=== PATIENT | male | born 1975 | race Caucasian/White ===

== ENCOUNTER 2018-01-04 22:30 | Emergency (ER) | payer BC ==
--- NOTE | 2018-01-05 01:28 | ER Document Report ---
HPI - HPI Patient complains to provider of: rash Pain Level: 1 Notes: Pt. is a 42 year old male presenting with a rash to the left shoulder. He stated he did not see any insect bite him, although was outside working in the yard and states it is possible something may have bitten him. States also it may be possible to have come in contact with poison mel or poison oak. Stated the lesion itches. Pt. denies fever, CP, SOB, or URI symptoms. - CONSTITUTIONAL Constitutional: DENIES: Fever Past Medical History - General Information source: Patient - Social History Smoking Status: Never Smoker Chew tobacco use (# tins/day): No Frequency of alcohol use: None Drug Abuse: None Lives with: Family Family History: Reviewed & Not Pertinent Patient has suicidal ideation: No Patient has homicidal ideation: No Renal/ Medical History: Denies: Hx Peritoneal Dialysis Vertical Provider Document - CONSTITUTIONAL Notes: GENERAL: Alert, interacts well. No acute distress. HEAD: Normocephalic, atraumatic. EYES: Pupils equal, round, and reactive to light. Extraocular movements intact. ENT: Oral mucosa moist, tongue midline. NECK: Full range of motion. Supple. Trachea midline. LUNGS: Clear to auscultation bilaterally, no wheezes, rales, or rhonchi. No respiratory distress. HEART: Regular rate and rhythm. No murmur ABDOMEN: Soft, non-tender. Non-distended. Bowel sounds present in all 4 quadrants. EXTREMITIES: Moves all 4 extremities spontaneously. No edema, normal radial and dorsalis pedis pulses bilaterally. No cyanosis. BACK: no cervical, thoracic, lumbar midline tenderness. No saddle anesthesia, normal distal neurovascular exam. NEUROLOGICAL: Alert and oriented x3. Normal speech. . PSYCH: Normal affect, normal mood. SKIN: Warm, dry, vesicular lesions noted 8cm x 5cm with erythema base - INFECTION CONTROL TRAVEL OUTSIDE OF THE [place] IN LAST 30 DAYS: No Course - Re-evaluation Re-evalutation: No area of fluctuance or induration noted. Consistent erythema with small vesicles noted consistent with contact dermatitis. Will treat for same. Return precautions given - Vital Signs Vital signs: Temp Pulse Resp BP Pulse Ox 98.5 F 72 18 140/86 H 97 01/04/18 22:45 01/04/18 22:45 01/04/18 22:45 01/04/18 22:45 01/04/18 22:45 Discharge - Discharge Clinical Impression: Poison mel dermatitis Condition: Stable Disposition: HOME, SELF-CARE Instructions: Contact Dermatitis ([facility]), Corticosteroid Medication ([facility]) Prescriptions: Hydrocortisone/Oatmeal/Aloe/E [Hydrocortisone 1% Cream] 28.4 gm TP BID #1 cream.gm.
[2018-01-05 01:41] VITALS: BP 127/82
== END 2018-01-05 01:41 | disposition home or self-care (01) ==
LOC: ER 22:30
DX: L23.7 Allergic contact dermatitis due to plants, except food (principal)
CPT/HCPCS: 99281

== ENCOUNTER → 2018-11-10 | Outpatient (CLI) | payer OTHER ==
--- NOTE | 2018-11-10 16:18 | RADIOLOGY REPORT (SQ) ---
EXAM DESCRIPTION: MRI HEAD WITHOUT COMPLETED DATE/TIME: 11/10/2018 4:01 pm REASON FOR STUDY: MIGRAINE WITH AURA, INTRACTABLE, WITHOUT STATUS MIGRAINOSUS G43.119 MIGRAINE WITH AURA, INTRACTABLE, WITHOUT STATUS MIGR COMPARISON: None. TECHNIQUE: Multiplanar imaging includes non-contrasted T1, T2, FLAIR, and diffusion with ADC map seq uences. Images stored on PACS. LIMITATIONS: None. FINDINGS: ANATOMY: No anomalies. Normal vascular flow voids. Pituitary fossa normal. CSF SPACES: Normal in size and contour. No hemorrhage. CEREBRUM: Sulci and gyri normal in size and contour. Normal white matter signal on FLAIR imaging. No evidence of hemorrhage, mass, or extraaxial fluid collection. POSTERIOR FOSSA: No signal alteration. No hemorrhage. No edema, masses or mass effect. Internal ramírez tory canals, cerebello-pontine angles, mastoids normal. DIFFUSION IMAGING: Negative for acute or sub-acute infarction. ORBITS: No masses. Globes normal. PARANASAL SINUSES: No fluid levels. Mucosa normal. OTHER: No other significant finding. IMPRESSION: NORMAL MRI OF THE BRAIN WITHOUT INTRAVENOUS GADOLINIUM CONTRAST. EVIDENCE OF ACUTE STROKE: NO. TECHNICAL DOCUMENTATION: JOB ID: [id number] 2010 [employer]- All Rights Reserved Reading location - IP/workstation name: [email or web address]
== END ==
LOC: RAD 15:22
PROVIDERS: ATTEND Physician Assistant
DX: G43.119 Migraine with aura, intractable, without status migrainosus (principal)
CPT/HCPCS: 70551

== ENCOUNTER 2020-04-03 18:39 | Emergency (ER) | payer BC, OTHER ==
--- NOTE | 2020-04-03 19:35 | ER Document Report ---
ED Medical Screen (RME) - General Chief Complaint: High Blood Pressure Stated Complaint: HIGH BLOOD PRESSURE Time Seen by Provider: 04/03/20 18:54 Primary Care Provider: JODIE MADRIGAL PA [Primary Care Provider] - Follow up as needed TRAVEL OUTSIDE OF THE [place] IN LAST 30 DAYS: No - HPI Notes: 04/03/20 18:59 44-year-old male with a history of migraines presents to the emergency room with complaints of a pressure-like headache, blurred vision, chest pressure with pain radiating down his left arm and increased fatigue around 3:57 PM today. Reports blood pressures usually 120 over 80s, no history of hypertension. Patient states that he took a full aspirin of 324, no relief. Denies any shortness of breath, nausea, vomiting abdominal pain. Denies any fevers or chills. He reports that his left arm "feels sore". Denies any trauma. Denies any cardiac history. Reports that his father passed at 65 from an [place], unsure of mother. Non-smoker. I have greeted and performed a rapid initial assessment of this patient. A comprehensive ED assessment and evaluation of the patient, analysis of test results and completion of the medical decision making process will be conducted by additional ED providers. PHYSICAL EXAMINATION: GENERAL: Well-appearing, well-nourished and in no acute distress. HEAD: Atraumatic, normocephalic. EYES: Pupils equal round extraocular movements intact, conjunctiva are normal. NECK: Normal range of motion CV: s1, s2 regular LUNGS: No respiratory distress Musculoskeletal: Normal range of motion NEUROLOGICAL: Normal speech, normal gait. Reps +2 bilaterally and equally SKIN: Warm, Dry, normal turgor, no rashes or lesions noted. The patient was evaluated during a global COVID-19 pandemic and that diagnosis was suspected/considered upon their initial presentation. Their evaluation, treatment and testing was consistent with current guidelines for patients who present with complaints or symptoms and may be related to COVID-19. - Related Data Allergies/Adverse Reactions: No Known Allergies Allergy (Unverified 01/04/18 22:32) Past Medical History Renal/ Medical History: Denies: Hx Peritoneal Dialysis Physical Exam - Vital signs Vitals: Temp Pulse Resp BP Pulse Ox 97.8 F 98 16 172/52 H 100 04/03/20 18:40 04/03/20 18:40 04/03/20 18:40 04/03/20 18:40 04/03/20 18:40 Course - Vital Signs Vital signs: Temp Pulse Resp BP Pulse Ox 97.8 F 98 16 172/52 H 100 04/03/20 18:40 04/03/20 18:40 04/03/20 18:40 04/03/20 18:40 04/03/20 18:40 Doctor's Discharge - Discharge Referrals: JODIE MADRIGAL PA [Primary Care Provider] - Follow up as needed
--- NOTE | 2020-04-03 19:48 | RADIOLOGY REPORT (SQ) ---
EXAM DESCRIPTION: CHEST SINGLE VIEW IMAGES COMPLETED DATE/TIME: 04/03/2020 7:41 pm REASON FOR STUDY: chest pressure COMPARISON: None. EXAM PARAMETERS: NUMBER OF VIEWS: One view. TECHNIQUE: Single frontal radiographic view of the chest acquired. RADIATION DOSE: NA LIMITATIONS: None. FINDINGS: LUNGS AND PLEURA: No opacities, masses or pneumothorax. No pleural effusion. MEDIASTINUM AND HILAR STRUCTURES: No masses. Contour normal. HEART AND VASCULAR STRUCTURES: Heart normal in size. Normal vasculature. BONES: No acute findings. HARDWARE: None in the chest. OTHER: No other significant finding. IMPRESSION: NO ACUTE RADIOGRAPHIC FINDING IN THE CHEST. TECHNICAL DOCUMENTATION: JOB ID: [id number] 2010 [employer]- All Rights Reserved Reading location - IP/workstation name: [email or web address]
[2020-04-03 19:50] LABS: ABSOLUTE EOSINOPHILS # (AUTO) 0.2 10^3/uL (0.0-0.6); ABSOLUTE LYMPHOCYTES (AUTO) 3.1 10^3/uL (0.5-4.7); ABSOLUTE MONOCYTES (AUTO) 0.5 10^3/uL (0.1-1.4); ABSOLUTE NEUT (AUTO) 4.7 10^3/uL (1.7-8.2); BASOPHILS % (AUTO) 0.4 % (0-2); EOSINOPHILS % (AUTO) 2.8 % (0-6); HEMOGLOBIN 15.5 g/dL (13.5-17.0); LYMPHOCYTES % (AUTO) 36.2 % (13-45); MEAN CORPUSCULAR HEMOGLOBIN 29.6 pg (27.0-33.4); MEAN CORPUSCULAR HGB CONC 35.1 g/dL (32.0-36.0); MEAN CORPUSCULAR VOLUME 84 fl (80-97); MONOCYTES % (AUTO) 6.3 % (3-13); PLATELET COUNT 247 10^3/uL (150-450); RED BLOOD COUNT 5.22 10^6/uL (4.35-5.55); RED CELL DISTRIBUTION WIDTH 13.1 % (11.5-14.0); SEGMENTED NEUTROPHILS % (AUTO) 54.3 % (42-78); TOTAL CELLS COUNTED % (AUTO) 100 %; WHITE BLOOD COUNT 8.7 10^3/uL (4.0-10.5)
[2020-04-03 20:06] LABS: APPEARANCE,URINE CLEAR; BILIRUBIN,URINE NEGATIVE (NEGATIVE); COLOR,URINE YELLOW; GLUCOSE, URINE NEGATIVE (NEGATIVE); KETONES,URINE NEGATIVE (NEGATIVE); LEUKOCYTE ESTERASE,URINE NEGATIVE (NEGATIVE); NITRITE,URINE NEGATIVE (NEGATIVE); PROTEIN,URINE NEGATIVE (NEGATIVE); URINE SPECIFIC GRAVITY 1.013; UROBILINOGEN,URINE NEGATIVE mg/dL (<2.0)
[2020-04-03 20:10] LABS: ALBUMIN 4.7 g/dL (3.5-5.0); ALKALINE PHOSPHATASE 74 U/L (38-126); ANION GAP 10 (5-19); ASPARTATE AMINO TRANSFERASE 37 U/L (17-59); BILIRUBIN,DIRECT 0.1 mg/dL (0.0-0.4); BLOOD UREA NITROGEN 16 mg/dL (7-20); CALCIUM 9.8 mg/dL (8.4-10.2); CARBON DIOXIDE 28 mmol/L (22-30); CHLORIDE 100 mmol/L (98-107); GLUCOSE 107 mg/dL (75-110); POTASSIUM 3.9 mmol/L (3.6-5.0); TOTAL PROTEIN 8.3 g/dL (6.3-8.2)
--- NOTE | 2020-04-03 20:45 | RADIOLOGY REPORT (SQ) ---
CT HEAD WITHOUT IV CONTRAST CLINICAL STATEMENT: +LANDAVERDE, vision changes, b/p 175/55, no hx htn TECHNIQUE: Axial CT images from skull base to vertex without IV contrast. This exam was performed according to our departmental dose optimization program, and includes the following measures where applicable: automated exposure control, adjustment of the mAs and/or kVp according to patient size and/or exam, and an iterative reconstruction algorithm. COMPARISON: None. FINDINGS: There is no acute intracranial hemorrhage, mass, mass effect or abnormal extra-axial fluid collection. No evidence of an acute territorial infarct is identified. The ventricles are normal. Calvaria: The skull base and calvaria demonstrate no abnormality. Paranasal sinuses: Visualized portions of the orbits and paranasal sinuses are unremarkable. skull base: Unremarkable IMPRESSION: No acute intracranial abnormality.
[2020-04-04] MEDS ORDERED: KETOROLAC TROMETHAMINE INJ/PF 30 MG/1 ML SDV IV ONE (00:36)
--- NOTE | 2020-04-04 02:02 | ER Document Report ---
ED General - General Chief Complaint: Chest Pain Stated Complaint: HIGH BLOOD PRESSURE Time Seen by Provider: 04/03/20 18:54 Primary Care Provider: JODIE MADRIGAL PA [NO LOCAL MD] - Follow up as needed Mode of Arrival: Ambulatory Information source: Patient TRAVEL OUTSIDE OF THE [place] IN LAST 30 DAYS: No - HPI Notes: Left-sided headache and elevated blood pressure at home. Patient reports headache radiates down the left side of his neck across the shoulder and onto his arm and chest. He is slightly nauseated. He has no photophobia. He has no head trauma. No loss of consciousness. Has a history of migraines and is on Topamax but only uses it on a as needed basis and did not take it today. Was taking his blood pressure at home and found the numbers to be somewhat high which made him anxious so they went even higher. He decided to come in for evaluation. He has no diaphoresis. He has no dyspnea. He denies any palpitations. He has no history of heart disease. He is not on any medications for hypertension and has never had high blood pressure. He is otherwise in his usual state of health. He admits to being under some stress because of the holidays. - Related Data Allergies/Adverse Reactions: No Known Allergies Allergy (Verified 04/04/20 00:47) Past Medical History - General Information source: Patient - Social History Smoking Status: Never Smoker Frequency of alcohol use: Rare Family History: Reviewed & Not Pertinent - Medical History Medical History: Other Notes: Past medical history as documented in electronic health record is reviewed. Renal/ Medical History: Denies: Hx Peritoneal Dialysis Review of Systems - Review of Systems Notes: All other systems are reviewed and are negative or noncontributory except as noted in the history of present illness. Physical Exam - Vital signs Vitals: Temp Pulse Resp BP Pulse Ox 97.8 F 98 16 172/52 H 100 04/03/20 18:40 04/03/20 18:40 04/03/20 18:40 04/03/20 18:40 04/03/20 18:40 - Notes Notes: General: This is a well-developed well-nourished male no acute distress. Vital signs and nursing chief complaint are reviewed. HEENT: Normocephalic atraumatic. EOMI. PERRLA. ENT exam otherwise normal. Neck: Supple nontender no adenopathy. Chest: Normal configuration lungs clear to auscultation. Heart: Regular rate and rhythm no murmur rub or gallop. Abdomen: Soft nontender no masses or organomegaly. Extremities: Without clubbing cyanosis edema or deformity. Skin: Warm moist good turgor. No rashes. Neuro: Alert and oriented x3. Cranial nerves II through of intact bilaterally. Strength and sensation are within normal limits. Course - Re-evaluation Re-evalutation: 04/04/20 02:45 Patient rested comfortably throughout his stay. His blood pressure normalized without specific intervention. He remained slightly hypertensive with a final blood pressure 138/92. I was initially going to treat him with a small dose of labetalol but his pressure did come down to that level before nursing staff gave it to him so we decided not to do that. Instead I gave him 15 mg of Toradol for his headache which resolved completely. He felt much better. All of his studies including repeat troponins were negative or nondiagnostic. I think it safe to let him go home. He should follow-up with his primary care provider within the next 7 days to have his blood pressure reevaluated and his symptoms reassessed. He has an appointment next Tuesday with his primary care clinic at the [place] and he will raise this issue at that visit. He should return to the emergency department if any concerning symptoms develop. - Vital Signs Vital signs: Temp Pulse Resp BP Pulse Ox 98.7 F 90 15 152/95 H 98 04/03/20 20:58 04/03/20 20:58 04/03/20 23:38 04/03/20 23:37 04/03/20 23:38 - Laboratory Results Result Diagrams: 04/03/20 19:15 04/03/20 19:15 Laboratory Results Interpreted: 04/03/20 19:15 ALT 57 H Total Protein 8.3 H Critical Laboratory Results Reviewed: No Critical Results - Radiology Results Critical Radiology Results Reviewed: No Critical Results - EKG Interpretation by Me EKG shows normal: Sinus rhythm Rate: Normal Rhythm: NSR Additional EKG results interpreted by me: 04/04/20 02:44 No evidence of any acute ischemic changes. Discharge - Discharge Clinical Impression: Elevated blood pressure reading Headache Qualifiers: Headache type: unspecified Headache chronicity pattern: acute headache Intractability: not intractable Qualified Code(s): R51.9 - Headache, unspecified Condition: Good Disposition: HOME, SELF-CARE Additional Instructions: Continue your current medications as prescribed. Follow-up with your primary care provider next week as scheduled. You may use naproxen for headache control if your headache recurs. Return to the emergency department if any other co ncerning symptoms develop. Referrals: JODIE MADRIGAL PA [NO LOCAL MD] - Follow up as needed
[2020-04-04 02:51] VITALS: BP 140/87
--- NOTE | 2020-04-04 09:56 | EKG REPORT ---
SEVERITY:- NORMAL ECG - SINUS RHYTHM : Confirmed by: Jeff Mojica MD 04-Apr-2020 09:55:56
== END 2020-04-04 02:30 | disposition home or self-care (01) ==
LOC: ER 18:39
DX: R03.0 Elevated blood-pressure reading, without diagnosis of hypertension (principal); R51.9 Headache, unspecified; R07.9 Chest pain, unspecified; R11.0 Nausea
CPT/HCPCS: 93005; 99285; 96374; 36415; 85025; 80053; 81001; 84484; 71045; 70450; 93010; J1885